=== PATIENT | female | born 1960 | race Two or more races ===

== ENCOUNTER 2025-04-18 08:21 | Outpatient (CLI) | payer MEDICAID ==
[2025-04-18 10:23] LABS: Microalb/Creat Ratio, Urine 3.00
[2025-04-18 10:34] LABS: Alanine Aminotransferase 13 U/L (7-40); Albumin 4.2 g/dL (3.2-4.8); Alkaline Phosphatase 55 U/L (46-116); Anion Gap 6 (5-15); BUN/Creatinine Ratio 15.8 (10.0-20.0); Blood Urea Nitrogen 12 mg/dL (9-23); Calcium 9.2 mg/dL (8.7-10.4); Carbon Dioxide 29 mmol/L (20-31); Glucose 103 mg/dL (74-106); Potassium 3.9 mmol/L (3.5-5.1); Sodium 143 mmol/L (136-145); Total Protein 7.4 g/dL (5.7-8.2); Triglycerides 117 mg/dL (< 150)
[2025-04-18 10:35] LABS: Bilirubin, Total 0.5 mg/dL (0.2-1.0); Cholesterol 142 mg/dL (< 200); HDL Cholesterol 46 mg/dL (40-59)
[2025-04-18 10:37] LABS: Chloride 108 mmol/L (98-107)
== END 2025-04-18 17:00 | disposition home or self-care (01) ==
LOC: LAB 08:21
PROVIDERS: ATTEND Family Medicine
DX: E78.5 Hyperlipidemia, unspecified (principal)
CPT/HCPCS: 36415; 80053; 80061; 82043; 82570; 83036

== ENCOUNTER 2025-06-05 08:43 | Outpatient (CLI) | payer MEDICAID ==
[2025-06-05 09:26] LABS: Hematocrit 45.9 % (36.0-46.0); Hemoglobin 15.9 g/dL (12.2-16.2); Mean Corpuscular Hemoglobin 31.8 pg (28.0-32.0); Mean Corpuscular Volume 91.9 fL (80.0-100.0); Nucleated Red Blood Cells % 0.1 %
[2025-06-05 09:41] LABS: Urine Protein, UAD Negative (Negative)
[2025-06-05 10:06] LABS: Alanine Aminotransferase 23 U/L (7-40); Alkaline Phosphatase 70 U/L (46-116); BUN/Creatinine Ratio 10.3 (10.0-20.0); Calcium 10.0 mg/dL (8.7-10.4); Carbon Dioxide 29 mmol/L (20-31); Cholesterol 149 mg/dL (< 200); Glucose 100 mg/dL (74-106); Potassium 4.0 mmol/L (3.5-5.1); Sodium 141 mmol/L (136-145); Triglycerides 93 mg/dL (< 150)
[2025-06-05 10:07] LABS: Albumin 4.9 g/dL (3.2-4.8); Bilirubin, Total 0.8 mg/dL (0.2-1.0); Blood Urea Nitrogen 9 mg/dL (9-23); HDL Cholesterol 60 mg/dL (40-59); Total Protein 8.8 g/dL (5.7-8.2)
[2025-06-05 10:22] LABS: Anion Gap 9 (5-15); Chloride 103 mmol/L (98-107)
[2025-06-05 10:28] LABS: Uric Acid 6.5 mg/dL (3.1-7.8)
[2025-06-06 14:07] LABS: Anti-Nuclear Antibody Direct Positive (Negative); Anti-dsDNA Antibody 1 IU/mL (0-9); Antiscleroderma-70 Antibody <0.2 AI (0.0-0.9); Sjogren's Anti-SS-A Antibody 1.2 AI (0.0-0.9); Sjogren's Anti-SS-B Antibody <0.2 AI (0.0-0.9)
[2025-06-07 14:07] LABS: Anti-Striated Muscle Antibody Negative (Neg:<1:100)
== END 2025-06-05 17:00 | disposition home or self-care (01) ==
LOC: LAB 08:43
PROVIDERS: ATTEND Family Medicine
DX: E78.5 Hyperlipidemia, unspecified (principal); E55.9 Vitamin D deficiency, unspecified; R73.03 Prediabetes; F33.9 Major depressive disorder, recurrent, unspecified; F41.1 Generalized anxiety disorder; I34.0 Nonrheumatic mitral (valve) insufficiency; Z00.01 Encounter for general adult medical examination with abnormal findings; Z12.11 Encounter for screening for malignant neoplasm of colon
CPT/HCPCS: 36415; 80053; 80061; 81001; 83036; 84443; 84550; 85025; 86160; 86225; 86235; 86376; 86431